=== PATIENT | female | born 1995 | race Caucasian/White ===

== ENCOUNTER 2018-01-02 13:08 | Emergency (ER) | payer BC ==
--- NOTE | 2018-01-02 15:19 | ED ---
Head Injury - HPI Summary HPI Summary: Patient is an otherwise healthy 22-year-old female who presents to the ED with chief complaint of headache, dizziness and feeling foggy since falling on the ice last night and hitting the back of her head. Denies loss of consciousness. Denies memory loss, confusion. She endorses EtOH use, but denies any drug use. She takes no medications including blood thinners. She states she has had multiple head injuries and has never had a CAT scan. She is requesting this today. She has not taken anything for pain or other symptoms. She states she slept approximately 11 hours which is abnormal for her. Denies any neuro deficits. Denies visual changes. - History Of Current Complaint Chief Complaint: EDHeadInjury Stated Complaint: FALL Time Seen by Provider: 01/02/18 14:28 Hx Obtained From: Patient Mechanism Of Injury: Direct Blow Onset/Duration: Started Hours Ago Onset of Pain: Minutes Severity Currently: Moderate Severity Initially: Moderate Pain Intensity: 2 Pain Scale Used: 0-10 Numeric Location of Head Injury: Diffuse Location: Diffuse Character: Pressure Aggravating Factor(s): Movement Alleviating Factor(s): Rest Associated Signs And Symptoms: Negative - Risk Factors SDH Risk Factor: Negative - Allergies/Home Medications Allergies/Adverse Reactions: Allergies Allergy/AdvReac Type Severity Reaction Status Date / Time No Known Allergies Allergy Verified 01/02/18 13:14 PMH/Surg Hx/FS Hx/Imm Hx Previously Healthy: Yes - Immunization History Hx Pertussis Vaccination: No Immunizations Up to Date: Unable to Obtain/Confirm Infectious Disease History: No Infectious Disease History: Denies: Traveled Outside the [place] in Last 30 Days - Social History Occupation: Unemployed Lives: Alone Alcohol Use: Weekly Hx Substance Use: No Substance Use Type: Reports: None Hx Tobacco Use: No Smoking Status (MU): Never Smoked Tobacco Review of Systems Constitutional: Negative Negative: Fever, Chills, Fatigue Eyes: Negative Cardiovascular: Negative Genitourinary: Negative Positive: no symptoms reported, see HPI Musculoskeletal: Negative Skin: Negative Positive: Headache Psychological: Normal All Other Systems Reviewed And Are Negative: Yes Physical Exam Triage Information Reviewed: Yes Vital Signs On Initial Exam: Initial Vitals Temp Pulse Resp BP Pulse Ox 97.0 F 90 15 113/74 100 01/02/18 13:11 01/02/18 13:11 01/02/18 13:11 01/02/18 13:11 01/02/18 13:11 Vital Signs Reviewed: Yes Appearance: Positive: Well-Appearing, Well-Nourished Skin: Positive: Warm, Skin Color Reflects Adequate Perfusion Head/Face: Positive: Normal Head/Face Inspection Eyes: Positive: EOMI, DONN, Conjunctiva Clear Neck: Positive: Supple, No Lymphadenopathy Respiratory/Lung Sounds: Positive: Clear to Auscultation, Breath Sounds Present Cardiovascular: Positive: RRR, Pulses are Symmetrical in both Upper and Lower Extremities Musculoskeletal: Positive: Normal, Strength/ROM Intact Neurological: Positive: Sensory/Motor Intact, Alert, Oriented to Person Place, Time, CN Intact II-III, Normal Gait, Facial Symmetry, Speech Normal Psychiatric: Positive: Affect/Mood Appropriate AVPU Assessment: Alert Diagnostics - Vital Signs Vital Signs Temp Pulse Resp BP Pulse Ox 01/02/18 13:11 97.0 F 90 15 113/74 100 - Laboratory Lab Statement: Any lab studies that have been ordered have been reviewed, and results considered in the medical decision making process. Head Injury Course/Dx Course Of Treatment: During the course of treatment the patient is evaluated for head injury. She is requesting a CT on this date. I have discussed the risks and benefits with a CT scan and she voices understanding. GCS score >15 at 2h post injury. No suspected open or depressed skull fx, no sign of basal skull fx, no hemotympanum, raccoon eyes, Battles sign, CSF everton-/rhinorrhea, no emesis after injury, age <64yo, no amnesia greater than 30 minutes prior to trauma, and mechanism of injury was minimal impact with no MVA or fall greater than 3 ft. Complete neuro exam completed and WNL. Normal head/face inspection with no cephalohematoma. Reflexes intact. EOMI, DONN, visual acuity intact. No obvious confusion or memory loss per patient and family. MMSE OK. GCS 15. Patient oriented to person, place and date. No obvious deformity or signs of trauma. Finger to nose, heel to toe OK. Speech normal, facial symmetry, normal gait, CN II-III intact. Patient denies LOC. ROM, strength, reflexes in upper and lower extremity intact, sensation intact. Patient discharged with return precautions and post-concussive symptoms explained to patient. Patient agrees to follow up and return if needed. - Diagnoses Differential Diagnosis/HQI/PQRI: Concussion Without LOC Provider Diagnoses: Concussion Discharge - Discharge Plan Condition: Stable Disposition: HOME Patient Education Materials: Concussion (ED) Forms: *School Release Referrals: [facility] GABRIEL Swann [Primary Care Provider] - Additional Instructions: [facility] for any worsening symptoms Tylenol 650 mg 3 times daily for headache Stay in a dark room and sleep as much as possible If you must do activities, take breaks as discussed I have given you a note for school for 2 days
[2018-01-02 16:05] VITALS: BP 112/70
--- NOTE | 2018-01-02 16:05 | RAD ---
Indication: Pain following fall striking head last night. Comparison: No relevant prior exams available on the [facility] for comparison. Technique: Noncontrast CT vertex of skull through foramen magnum. Report: The sulci, ventricles, and basal cisterns are normal for age. Lin matter white matter differentiation is preserved without evidence for edema. No intra or extra axial hemorrhage is detected. Unremarkable visualized orbital contents. Negative for calvarial or skull base fracture. Negative for scalp hematoma. The visualized paranasal sinuses and mastoid air spaces are clear. IMPRESSION: No CT evidence for traumatic brain injury. Negative exam.
== END 2018-01-02 16:13 | disposition home or self-care (01) ==
LOC: ED 13:08
DX: S06.0X9A Concussion with loss of consciousness of unspecified duration, initial encounter (principal); W00.0XXA Fall on same level due to ice and snow, initial encounter; Y92.9 Unspecified place or not applicable
CPT/HCPCS: 70450; 99282